=== PATIENT | female | born 1960 | race Hispanic/Latino ===

== ENCOUNTER 2017-11-15 16:17 | Emergency (ER) | payer BC ==
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
[2017-11-15] MEDS ORDERED: MOTRIN PO ONE (21:09)
[2017-11-15 21:25] VITALS: BP 110/64
[2017-11-16] MEDS ORDERED: LIORESAL PO SCH (08:00)
== END 2017-11-15 21:26 | disposition home or self-care (01) ==
LOC: ED 16:17
DX: M94.0 Chondrocostal junction syndrome [Tietze] (principal); M25.511 Pain in right shoulder; V49.49XA Driver injured in collision with other motor vehicles in traffic accident, initial encounter; Y93.89 Activity, other specified; Y92.89 Other specified places as the place of occurrence of the external cause; Y99.8 Other external cause status
CPT/HCPCS: 71046; 99283

== ENCOUNTER 2017-12-10 11:07 | Emergency (ER) | payer SELFPAY ==
[2017-12-10 11:36] VITALS: BP 109/56
--- NOTE | 2017-12-10 13:03 | Emergency Department Report ---
ED Rash HPI - HPI Chief Complaint: Skin Rash Stated Complaint: MEDICAL CLEARANCE Time Seen by Provider: 12/10/17 12:53 Rash Symptoms: Yes Itching, No Facial Swelling, No Tongue/Oral Swelling, No Breathing Difficulties, No Choking Sensation, No Wheezing/Dyspnea, No Peeling, No Blistering, No Fever, No Lightheaded, No Malaise, No Myalgias Other History: Is a 57-year-old female who brought some clothes from [facility] and now has itch. Patient states she is wants to close patient believes they have had bedbugs in them. Patient states sores or rashes been using hydrocortisone cream which is improving her itching. Patient is here to get medical clearance that she is not having any bedbugs on her currently. ED Review of Systems ROS: Stated complaint: MEDICAL CLEARANCE Other details as noted in HPI Comment: All other systems reviewed and negative ED Past Medical Hx - Past Medical History Additional medical history: IBS - Surgical History Past Surgical History?: No - Social History Smoking Status: Never Smoker Substance Use Type: None - Medications Home Medications: Home Medications Medication Instructions Recorded Confirmed Last Taken Type Baclofen [Lioresal] 10 mg PO TID #15 tablet 11/15/17 Unknown Rx Ibuprofen [Motrin 600 MG tab] 600 mg PO Q8H #30 tablet 11/15/17 Unknown Rx Permethrin [Elimite] 60 gm TP ONCE #1 bottle 12/10/17 Unknown Rx Rash Exam - Exam General: Vital signs noted. No distress. Alert and acting appropriately. HEENT: No Periorbital Edema, No Conjuctival Injection, No Chemosis, No Perioral Edema, No Tongue Edema, No Uvular Edema, No Compromised Airway, No Drooling Lungs: Yes Good Air Exchange (Normal Breath Sounds), No Wheezes, No Ronchi, No Stridor, No Cough, No Labored Respirations, No Retractions, No Use of Accessory Muscles, No Other Abnormal Lung Sounds Heart: Yes Regular, No Murmur Skin: Yes Maculopapular Rash (on the arms and shins) Other: Positive: Abdomen Normal, Neurologic Normal, Musculoskeletal Normal ED Course Vital Signs 12/10/17 11:33 Temperature 98 F Pulse Rate 56 L Respiratory 16 Rate Blood Pressure 109/56 O2 Sat by Pulse 100 Oximetry ED Medical Decision Making - Medical Decision Making Patient states she's washed all the clothes that may have had bedbugs in them. Because she is still having some itchiness and because of the sores in the closed patient be started on Elimite as well and will be discharged home Critical care attestation.: If time is entered above; I have spent that time in minutes in the direct care of this critically ill patient, excluding procedure time. ED Disposition Clinical Impression: Rash Disposition: DC-01 TO HOME OR SELFCARE Is pt being admited?: No Does the pt Need Aspirin: No Condition: Stable Prescriptions: Permethrin [Elimite] 60 gm TP ONCE #1 bottle Referrals: PRIMARY CARE, [Primary Care Provider] - 3-5 Days Forms: Work/School Release Form(ED)
== END 2017-12-10 13:10 | disposition home or self-care (01) ==
LOC: ED 11:07
DX: R21 Rash and other nonspecific skin eruption (principal); K58.9 Irritable bowel syndrome, unspecified
CPT/HCPCS: 99282